=== PATIENT | female | born 1950 | race Caucasian/White ===

== ENCOUNTER 2023-02-24 07:24 | Day surgery (SDC) | payer MEDICARE, MEDICAID ==
[~2023-02-24] VITALS: Ht 165.1 cm; Wt 47.3 kg
[~2023-02-24 07:24] MED LIST: ALEN70TA65 PO; BUDE180H IH; CHOL25TA4 PO; DOCU-385 PO; FURO20 PO; IPRA4AER IH; KETOROLAC TROMETHAMINE 0.5% 5 ML OPHTHALMIC SOLUTION ONE; MOXIFLOXACIN HCL 0.5% 3 ML OPHTHALMIC SOLUTION ONE; OS500 PO; OXYC5 PO; PHENYLEPHRINE HCL 2.5% 2 ML OPHTHALMIC SOLUTION ONE; RINGERS SOLUTION,LACTATED 500 ML IV ONE; TIOT4MIS3 IH; TROPICAMIDE 1% 2 ML OPHTHALMIC SOLUTION ONE
[2023-02-24] MEDS: TROPICAMIDE 1% 2 ML OPHTHALMIC SOLUTION OD SCH ×3 (08:57→09:08)
[2023-02-24] MEDS: PHENYLEPHRINE HCL 2.5% 2 ML OPHTHALMIC SOLUTION OD SCH ×3 (08:57→09:08)
[2023-02-24] MEDS: KETOROLAC TROMETHAMINE 0.5% 5 ML OPHTHALMIC SOLUTION OD SCH ×3 (08:57→09:08)
[2023-02-24] MEDS: MOXIFLOXACIN HCL 0.5% 3 ML OPHTHALMIC SOLUTION OD SCH ×3 (08:57→09:09)
[2023-02-24] MEDS ORDERED: MIDAZOLAM HCL 2 MG/2 ML VIAL IVP ONE (12:00)
[2023-02-24] MEDS ORDERED: FentaNYL CITRATE PF 100 MCG/2 ML VIAL IVP ONE (12:00)
== END 2023-02-24 12:10 | disposition home or self-care (01) ==
LOC: SURGERY 07:24
PROVIDERS: ATTEND Ophthalmology
DX: H25.11 Age-related nuclear cataract, right eye (principal); J43.9 Emphysema, unspecified; Z98.890 Other specified postprocedural states; F17.210 Nicotine dependence, cigarettes, uncomplicated; Z96.642 Presence of left artificial hip joint; Z79.899 Other long term (current) drug therapy
CPT/HCPCS: 93005; 66984; J3010; J2250; J7120; V2632

== ENCOUNTER 2023-03-24 08:05 | Day surgery (SDC) | payer MEDICARE ==
[~2023-03-24 08:05] MED LIST changes: +EPINEPHrine 1:1,000 [1 MG/ML] VIAL ONE; +LIDOCAINE/PF 1% 2 ML VIAL ONE; +POVIDONE-IODINE 10% 15 ML SOLUTION UD ONE; +TETRACAINE HCL/PF 0.5% 4 ML OPHTHALMIC SOLUTION ONE
[2023-03-24] MEDS: MOXIFLOXACIN HCL 0.5% 3 ML OPHTHALMIC SOLUTION OS SCH ×3 (08:38→08:58)
[2023-03-24] MEDS: TROPICAMIDE 1% 2 ML OPHTHALMIC SOLUTION OS SCH ×3 (08:38→08:58)
[2023-03-24] MEDS: KETOROLAC TROMETHAMINE 0.5% 5 ML OPHTHALMIC SOLUTION OS SCH ×3 (08:38→08:58)
[2023-03-24] MEDS: PHENYLEPHRINE HCL 2.5% 2 ML OPHTHALMIC SOLUTION OS SCH ×3 (08:38→08:58)
[2023-03-24] MEDS ORDERED: RINGERS SOLUTION,LACTATED 500 ML IV ONE (09:30)
[2023-03-24] MEDS ORDERED: FentaNYL CITRATE PF 100 MCG/2 ML VIAL IVP ONE (12:00)
[2023-03-24] MEDS ORDERED: MIDAZOLAM HCL 2 MG/2 ML VIAL IVP ONE (12:00)
== END 2023-03-24 10:15 | disposition home or self-care (01) ==
LOC: SURGERY 08:05
PROVIDERS: ATTEND Ophthalmology
DX: H25.12 Age-related nuclear cataract, left eye (principal); J44.9 Chronic obstructive pulmonary disease, unspecified; I10 Essential (primary) hypertension; Z87.891 Personal history of nicotine dependence; Z79.899 Other long term (current) drug therapy; Z98.890 Other specified postprocedural states
CPT/HCPCS: 66984; J0171; J3010; J3490; J2250; J7120; V2632